=== PATIENT | male | born 1980 | race Caucasian/White ===

== ENCOUNTER 2017-05-12 09:48 | Emergency (ER) | payer BC, OTHER ==
[2017-05-12 10:09] VITALS: TEMP 97.8; BMI 26.6
[2017-05-12] MEDS ORDERED: SODIUM CHLORIDE 1,000 ML IV ONE (10:31)
[2017-05-12] MEDS ORDERED: KETOROLAC TROMETHAMINE 30 MG/1 ML VIAL IVPUSH ONE (10:31)
--- NOTE | 2017-05-12 10:31 | PDOC ---
History of Present Illness - General History Source: Patient Exam Limitations: No Limitations - History of Present Illness Initial Comments: 05/12/17 10:57 The patient is a 36 year old male, with a significant past medical history of kidney stones, who presents to the emergency department with, approx. one day of progressively worsening left upper flank pain. The patient states the left upper flank pain began last night at rest but he was able to sleep throughout the night until he was awoken by the left flank pain at 5 am. The patient describes the left upper flank pain as a sharp intermittent pain, rated 10/10, and radiating to the groin region. The patient reports associated urinary frequency and urgency but denies any dysuria or hematuria. The patient states his last kidney stone was approx. 7-8 years ago. He denies any recent fevers, chills, headache or dizziness. He denies any recent nausea, vomit, diarrhea or constipation. He denies any recent chest pain or shortness of breath. He denies any recent injury or trauma. Allergies: NKDA Primary Care Physician: Dr. Trevor Banks <Tl Thorne - Last Filed: 05/12/17 10:57> <Collin De Los Santos - Last Filed: 05/12/17 12:44> - General Chief Complaint: Pain, Acute Stated Complaint: BACK PAIN Time Seen by Provider: 05/12/17 10:10 Past History <Tl Thorne - Last Filed: 05/12/17 10:57> - Past Medical History Anemia: No Asthma: Yes Cancer: No Cardiac Disorders: No CVA: No COPD: No CHF: No Dementia: No Diabetes: No GI Disorders: No Disorders: No HTN: No Hypercholesterolemia: No Kidney Stones: Yes Liver Disease: No Seizures: No Thyroid Disease: No - Suicide/Smoking/Psychosocial Hx Smoking Status: No Smoking History: Never smoked Have you smoked in the past 12 months: No Number of Cigarettes Smoked Daily: 0 Cigars Per Day: 1 Information on smoking cessation initiated: No Hx Alcohol Use: No Drug/Substance Use Hx: No Substance Use Type: None, Alcohol Hx Substance Use Treatment: No <Collin De Los Santos - Last Filed: 05/12/17 12:44> - Past Medical History Allergies/Adverse Reactions: Allergies Allergy/AdvReac Type Severity Reaction Status Date / Time Beef Containing Products Allergy Intermediate Hives Verified 05/12/17 09:57 No Known Drug Allergies Allergy Verified 05/12/17 09:57 Home Medications: Ambulatory Orders Oxycodone HCl/Acetaminophen [Percocet 5-325 mg Tablet] 1 - 2 tab PO Q6H PRN #14 tab MDD 8 tabs 05/12/17 Tamsulosin HCl [Flomax] 0.4 mg PO DAILY #5 cap.er.24h 05/12/17 Review of Systems - Review of Systems Constitutional: No: Chills, Fever Respiratory: No: Cough, Shortness of Breath Cardiac (ROS): No: Chest Pain ABD/GI: No: Constipated, Diarrhea, Nausea, Vomiting : Yes: See HPI, Dysuria, Frequency, Flank Pain. No: Hematuria All Other Systems: Reviewed and Negative <Collin De Los Santos - Last Filed: 05/12/17 12:44> *Physical Exam - Vital Signs Last Vital Signs Temp Pulse Resp BP Pulse Ox 97.8 F 73 12 115/55 100 05/12/17 09:53 05/12/17 09:53 05/12/17 09:53 05/12/17 09:53 05/12/17 09:53 - Physical Exam Comments: 05/12/17 10:58 GENERAL: The patient is awake, alert, and fully oriented, in no acute distress. HEAD: Normal with no signs of trauma. EYES: Pupils equal, round and reactive to light, extraocular movements intact, sclera anicteric, conjunctiva clear with no pallor. ENT: Ears normal, nares patent, oropharynx clear without exudates. Moist mucous membranes. NECK: Normal range of motion, supple without lymphadenopathy, JVD, or masses. LUNGS: Breath sounds equal, clear to auscultation bilaterally. No wheeze/ crackles. HEART: Regular rate and rhythm, normal S1 and S2 without murmur or rub. ABDOMEN: +Left lower quadrant and left CVA discomfort. Soft/nondistended. BS wnl. No guarding or rebound. EXTREMITIES: Normal range of motion, no edema. No clubbing or cyanosis. No cords, erythema, or tenderness. NEUROLOGICAL: Cranial nerves II through XII grossly intact. Normal speech, normal gait. PSYCH: Normal mood, normal affect. SKIN: Warm, Dry, normal turgor, no rashes or lesions noted. <Thorne,Tl - Last Filed: 05/12/17 10:57> - Vital Signs Last Vital Signs Temp Pulse Resp BP Pulse Ox 97.8 F 73 12 115/55 100 05/12/17 09:53 05/12/17 09:53 05/12/17 09:53 05/12/17 09:53 05/12/17 09:53 <Collin De Los Santos - Last Filed: 05/12/17 12:44> ED Treatment Course - LABORATORY CBC & Chemistry Diagram: 05/12/17 10:33 05/12/17 10:33 - Medications Given in the ED: ED Medications Discontinued Medications Generic Name Dose Route Start Last Admin Trade Name Freq PRN Reason Stop Dose Admin Ketorolac Tromethamine 30 mg 05/12/17 10:31 05/12/17 10:42 Toradol Injection - IVPUSH 05/12/17 10:32 30 mg ONCE ONE Administration <Tl Thorne - Last Filed: 05/12/17 10:57> - LABORATORY CBC & Chemistry Diagram: 05/12/17 10:33 05/12/17 10:33 <Collin De Los Santos - Last Filed: 05/12/17 12:44> Medical Decision Making - Medical Decision Making 05/12/17 10:53 A portion of this note was documented by scribe services under my direction. I have reviewed the details of the note, within reason, and agree with the documentation with the following case summary and management plan written by me. Healthy 36-year-old male with history of kidney stones presents with left flank pain now radiating to left groin that began last night. No fevers or chills, some frequency but no gross hematuria. Afebrile. Left CVA and left groin discomfort to palpation without obvious hernia or guarding or rebound 36-year-old male with symptoms typical of left renal colic. Labs, urinalysis No indication for emergent imaging, presentation is typical of renal colic, and pain seems to be migrating from left flank to left groin suggestive of appropriate progress. Pain control, reassess 05/12/17 12:24 Feels better, received IV fluids. Labs wnl, no leukocytosis, Cr 1.4. UA with blood but no infection. Will d/c with pain control and f/u. Understands return criteria. Father at bedside will accompany home. <Collin De Los Santos - Last Filed: 05/12/17 12:44> *DC/Admit/Observation/Transfer - Attestations Scribe Attestion: 05/12/17 10:59 Documentation prepared by Tl Thorne, acting as medical or surgical instrument maker for Collin De Los Santos MD. <Tl Thorne - Last Filed: 05/12/17 10:57> <Collin De Los Santos - Last Filed: 05/12/17 12:44> Diagnosis at time of Disposition: Renal colic on left side - Discharge Dispostion Disposition: HOME Condition at time of disposition: Improved - Prescriptions Prescriptions: Oxycodone HCl/Acetaminophen [Percocet 5-325 mg Tablet] 1 - 2 tab PO Q6H PRN #14 tab MDD 8 tabs PRN Reason: Pain Tamsulosin HCl [Flomax] 0.4 mg PO DAILY #5 cap.er.24h - Referrals Referrals: Trevor Banks MD, MD [Primary Care Provider] - Mook Cummins MD [Staff Physician] - - Patient Instructions Printed Discharge Instructions: DI for Kidney Stones Additional Instructions: Activity as tolerated. Stay hydrated. Your presentation is due to a kidney stone on the left side. This will likely pass on its own over the next 48 hours. Take Ibuprofen 600 mg every 8 hours as needed for moderate pain, take Percocet as prescribed as needed for severe pain. Percocet can make you lightheaded, so take proper precautions. Take Flomax daily to help pass the stone. Continue your medications as previously prescribed by your physician. You should follow up with a urologist as soon as possible regarding today's emergency department visit. Return to the emergency department for any new or concerning symptoms, particularly persistent or worsening pain, inability to urinate, fevers or chills, persistent pain after 48 hours. At that time, evaluation with a CT scan may be needed to further identify the size and location of the stone. - Post Discharge Activity
[2017-05-12] MEDS ORDERED: KETOROLAC TROMETHAMINE 30 MG/1 ML VIAL ONE (10:35)
[2017-05-12 10:54] LABS: BASO % 0.5 % (0-2.0); EOS % 0.7 % (0-4.5); HEMATOCRIT 48.5 % (35.4-49); HEMOGLOBIN 16.4 GM/dL (11.7-16.9); LYMPH % 19.5 % (8-40); MCH 30.9 pg (25.7-33.7); MCHC 33.8 g/dl (32.0-35.9); MEAN CELL VOLUME 91.5 fl (80-96); MONO % 7.1 % (3.8-10.2); NEUT % 72.2 % (42.8-82.8); PLATELET COUNT 143 K/MM3 (134-434); RDW 12.7 % (11.9-15.9); URINE APPEARANCE CLEAR; URINE BILIRUBIN NEGATIVE (NEGATIVE); URINE BLOOD 1+ (NEGATIVE); URINE COLOR YELLOW; URINE GLUCOSE (UA) NEGATIVE (NEGATIVE); URINE KETONE NEGATIVE (NEGATIVE); URINE LEUK ESTERASE NEGATIVE (NEGATIVE); URINE NITRITE NEGATIVE (NEGATIVE); URINE PROTEIN NEGATIVE (NEGATIVE); WHITE BLOOD COUNT 6.3 K/mm3 (4.0-10.0)
[2017-05-12 11:12] LABS: ALBUMIN 3.8 g/dl (3.4-5.0); ALK PHOS 60 U/L (45-117); ANION GAP 6 (8-16); BILIRUBIN,TOTAL 1.1 mg/dL (0.2-1.0); BLOOD UREA NITROGEN 19 mg/dL (7-18); CALCIUM 8.2 mg/dL (8.5-10.1); CHLORIDE 106 mmol/L (98-107); CO2 28 mmol/L (21-32); CREATININE 1.4 mg/dL (0.7-1.3); GLUCOSE,RANDOM 93 mg/dL (74-106); LIPASE 129 U/L (73-393); POTASSIUM 4.1 mmol/L (3.5-5.1); SGOT/AST 24 U/L (15-37); SGPT/ALT 61 U/L (12-78); SODIUM 140 mmol/L (136-145); TOT PROT 6.7 g/dl (6.4-8.2)
[2017-05-12 11:43] LABS: GRANULAR CASTS 1 /lpf; URINE MUCUS RARE
[2017-05-12 13:34] VITALS: BP 131/78; PULSE 57
== END 2017-05-12 12:54 | disposition home or self-care (01) ==
LOC: JER 09:48
PROC: 3E0233Z Introduction of Anti-inflammatory into Muscle, Percutaneous Approach (ICD-10-PCS; principal; 2017-05-12)
DX: N20.0 Calculus of kidney (principal); Z87.442 Personal history of urinary calculi
CPT/HCPCS: 36415; 80053; 81003; 81015; 83690; 85025; 87086; 99283-25

== ENCOUNTER 2017-05-14 12:44 | Day surgery (SDC) | payer OTHER ==
[2017-05-14] MEDS ORDERED: PROPOFOL 20 ML ONE (15:46)
[2017-05-14] MEDS ORDERED: MIDAZOLAM HCL 2 MG/2 ML SINGLE DOSE VIAL ONE (15:46)
[2017-05-14] MEDS ORDERED: SUCCINYLCHOLINE CHLORIDE 200 MG/10 ML VIAL ONE (15:46)
[2017-05-14 15:52] VITALS: BMI 26.6
[2017-05-14] MEDS ORDERED: ceFAZolin SODIUM 1 GM VIAL IVPB ONE (16:17)
[2017-05-14] MEDS ORDERED: IOHEXOL 180 MG/1 ML ML IJ ONE (16:26)
[2017-05-14] MEDS ORDERED: DEXAMETHASONE SOD PHOSPHATE 4 MG/1 ML VIAL ONE (16:37)
[2017-05-14] MEDS ORDERED: CEFAZOLIN 1 GM PUSH 1 GM/10 ML DISP.SYRIN IVPUSH ONE (16:57)
--- NOTE | 2017-05-14 17:05 | OP ---
Operative Note - Note: Operative Date: 05/14/17 Pre-Operative Diagnosis: Left Renal Colic Left Hydronephrosis Operation: Cysto, Retro, Stent Placement Left Findings: Left [place], left lower ureteral calculus Post-Operative Diagnosis: Same as Pre-op Surgeon: Zach Sherwood Anesthesia: General Drains & Tubes with Location: 22 F 6 mm Stent Operative Report Dictated: Yes
[2017-05-14 18:08] VITALS: TEMP 98
[2017-05-14 18:33] VITALS: BP 130/70; PULSE 90
[2017-05-14] MEDS ORDERED: oxyCODONE HCL 5 MG TABLET PO PRN (20:07)
[2017-05-14] MEDS ORDERED: ONDANSETRON 4 MG/2 ML VIAL IVPUSH PRN (20:07)
[2017-05-14] MEDS ORDERED: LACTATED RINGERS SOLUTION 1,000 ML IV SCH (20:15)
== END 2017-05-14 18:36 | disposition home or self-care (01) ==
LOC: JASU-SURG 12:44 → JRADCT 12:44 → EDSTATUS 17:00 → JASU-SURG 18:36
PROVIDERS: ATTEND Urology
PROC: 0T778DZ Dilation of Left Ureter with Intraluminal Device, Via Natural or Artificial Opening Endoscopic (ICD-10-PCS; principal; 2017-05-14 15:00)
DX: N13.2 Hydronephrosis with renal and ureteral calculous obstruction (principal)
CPT/HCPCS: 74176-TC; 76000-TC-FY; 94760